=== PATIENT | male | born 1945 | race Asian ===

== ENCOUNTER 2017-11-20 10:57 | Emergency (ER) | payer SELFPAY ==
[~2017-11-20] VITALS: Ht 160 cm; Wt 63.5 kg
[2017-11-20 11:02] VITALS: BP_SYST 141
[2017-11-20 12:57] LABS: INR 2.1 (0.80-1.20); PROTHROMBIN TIME 21.1 SECS (9.5-12.5)
[2017-11-20 13:08] VITALS: BP_SYST 135
== END 2017-11-20 13:08 | disposition home or self-care (01) ==
LOC: SED 10:57
DX: S60.132A Contusion of left middle finger with damage to nail, initial encounter (principal); S60.142A Contusion of left ring finger with damage to nail, initial encounter; R79.1 Abnormal coagulation profile; I48.91 Unspecified atrial fibrillation; R03.0 Elevated blood-pressure reading, without diagnosis of hypertension; W23.0XXA Caught, crushed, jammed, or pinched between moving objects, initial encounter; Y93.89 Activity, other specified; Y92.59 Other trade areas as the place of occurrence of the external cause; Y99.8 Other external cause status
CPT/HCPCS: 36415; 73140-TC; 85610-TC; 99285